=== PATIENT | female | born 1940 | race Caucasian/White ===

== ENCOUNTER 2024-02-13 01:44 | Observation (INO) | payer OTHER, SELFPAY ==
[2024-02-12 19:30] VITALS: BP 127/73
[2024-02-12 19:48] LABS: % Basophils 0.3 % (0-2); % Eosinophils 0.6 % (0-6); % Immature Granulocytes 0.3 % (0-0.5); % Lymphocytes 16.3 % (20.5-51.1); % Monocytes 7.9 % (1.7-9.3); % Neutrophils 74.6 % (42.2-75.2); Absolute Eosinophils 0.1 10^3/uL (0-0.7); Absolute Lymphocytes 1.6 10^3/uL (1.2-3.4); Absolute Monocytes 0.8 10^3/uL (0.1-0.6); Absolute Neutrophils 7.1 10^3/uL (1.4-6.5); Hematocrit 37.6 % (37.0-47.0); Hemoglobin 13.2 g/dL (12.0-16.0); Mean Corp Hgb Conc. 35.1 g/dL (33.0-37.0); Mean Corpuscular Hgb 31.2 pg (27.0-31.0); Mean Corpuscular Volume 88.9 fL (81.0-99.0); Mean Platelet Volume 9.2 fL (7.4-10.4); Nucleated Red Blood Cells % 0 %; Platelet Count 265 10^3/uL (130-400); Red Blood Cell Count 4.23 10^6/uL (4.20-5.40); Red Cell Dist. Width 12.3 % (11.5-14.5); White Blood Cell Count 9.5 10^3/uL (4.8-10.8)
[2024-02-12] MEDS: ZOFRAN ODT (ORALLY DISINTEGRATING) 4 MG PO (20:10)
[2024-02-12 20:13] LABS: ALT (SGPT) 17 U/L (0-35); AST (SGOT) 26 U/L (14-36); Albumin 4.3 g/dl (3.5-5.0); Alkaline Phosphatase 85 U/L (38-126); Blood Urea Nitrogen 12 mg/dl (7-17); Calcium 9.3 mg/dl (8.4-10.2); Carbon Dioxide 23 mmol/L (22-30); Chloride 101 mmol/L (98-107); Glucose 124 mg/dl (70-99); Lipase 36 U/L (23-300); Potassium 4.1 mmol/L (3.5-5.1); Sodium 133 mmol/L (135-145); Total Bilirubin 1.1 mg/dl (0.2-1.3); Total Protein 7.2 g/dl (6.3-8.2); eGFR > 60.00
[2024-02-12 21:29] VITALS: BP 126/76
[2024-02-12 21:30] VITALS: BMI 26.8
[2024-02-12 22:00] VITALS: BP 143/75
[2024-02-12] MEDS: ZOFRAN 4 MG IV (22:18)
[2024-02-12] MEDS: NSS 1000 IV (22:18)
[2024-02-12] MEDS: MORPHINE SULFATE 4 MG IV (22:19)
--- NOTE | 2024-02-12 23:07 | ED.GENMED ---
History of Present Illness
General
Chief Complaint: Abdominal Pain
Source: patient and family
Time Seen by Provider: 02/12/24 22:06
History of Present Illness
History of Present Illness:
83-year-old female with past medical history of hypertension and previous stomach ulcer presenting to the emergency department for evaluation of generalized upper abdominal pain, nausea, vomiting and diarrhea since February 07. Symptoms have been waxing
and waning in nature, currently the worst it has been, constant, nonradiating and unrelieved with an gvxa-fxf-cmuuwca antiacid and some Gatorade. Patient went to urgent care today with family and was recommended to come to the ER for further
evaluation. No fevers, chills, rigors, chest pain, shortness of breath, back or flank pain or any other concerns. States this feels different than any previous GI related illness. Notes a history of previous appendectomy but no other abdominal
surgeries. Social history and family history noncontributory
Past History
Past History
ED Past Medical History: HTN and Other (Intermittent vertigo, peptic ulcer disease)
ED Past Surgical History: Appendectomy
Social History
Tobacco: Non-smoker
Alcohol: None
Drug: None
Personal: Single
Living: alone
Employment: Other
Family History
Family History: Other
Review of Systems
Review of Systems
All Other Systems: ROS reviewed and negative except as documented in HPI and ROS
Phy Exam
Physical Exam
Physical Exam:
GENERAL: Alert , appears in considerable pain, curled up in a ball and holding abdomen, tearful
EYE: clear conjunctiva b/l
HEAD: NCAT
ENT: o/p clr, mmm.
CARDIAC: Regular rate and rhythm .
LUNGS: Clear breath sounds bilaterally, no acute respiratory distress, no wheezes/rales/rhonchi
ABDOMEN: Soft, without focal tenderness, no r/g, no cvat, negative Lentz sign. Patient stating pain does not seem to be worsened or aggravated by palpation
NEUROLOGICAL: Alert and oriented
SKIN: Warm and dry, skin intact.
MUSCULOSKELETAL: No edema, well perfused.
PSYCH: Normal and appropriate interaction.
Scores
Heart Failure Risk
Heart Failure Risk Score: Not Applicable
Heart Score for Chest Pain Patients
STEMI patient?: Not applicable
Withdrawal Assessment of Alcohol
Withdrawal Assessment Completed?: Not applicable
Course
Orders/Labs/Results
Orders:
Orders
02/12/24 19:40
Complete Blood Count/With Diff Urgent
Comprehensive Metabolic Panel Urgent
Lipase Urgent
02/12/24 20:09
Ondansetron Orally Disint [Zofran Odt (Orally Disintegrating)] 4 mg .ROUTE .STK-MED ONE
Ondansetron Orally Disint [Zofran Odt (Orally Disintegrating)] 4 mg PO NOW STA
02/12/24 22:14
Morphine Sulfate 4 mg .ROUTE .STK-MED ONE
Ondansetron Injectable [Zofran] 4 mg .ROUTE .STK-MED ONE
02/12/24 22:15
0.9% Sodium Chloride 1000 ml [Nss] 1,000 ml IV BOLUS
Morphine Sulfate 4 mg IV NOW STA
Ondansetron Injectable [Zofran] 4 mg IV NOW STA
02/12/24 22:16
US Abdomen Complete/Upper Urgent
Comment:
Reason For Exam: upper abd pain, nausea/vomiting
02/12/24 23:31
CT Abd/pelvis W Iv Cont Urgent
Comment:
Reason For Exam: upper abd pain, vomiting
02/13/24 01:04
Prochlorperazine [Compazine] 10 mg IV NOW STA
Abnormal Lab Results
02/12/24
19:40
MCH 31.2 H pg
(27.0-31.0)
Absolute Neuts (auto) 7.1 H 10^3/uL
(1.4-6.5)
Absolute Monos (auto) 0.8 H 10^3/uL
(0.1-0.6)
Lymphocytes % 16.3 L %
(20.5-51.1)
Sodium 133 L mmol/L
(135-145)
Glucose 124 H mg/dl
(70-99)
02/12/24 19:40
02/12/24 19:40
Vital Signs
Initial and Last Documented VS:
Initial Vital Signs
Temp Pulse Resp BP Pulse Ox
98 F 84 18 127/73 96
02/12/24 19:30 02/12/24 19:30 02/12/24 19:30 02/12/24 19:30 02/12/24 19:30
Last Documented Vital Signs
Temp Pulse Resp BP Pulse Ox
98 F 84 18 137/76 94
02/12/24 19:30 02/12/24 19:30 02/12/24 19:30 02/13/24 00:26 02/13/24 00:30
MDM/Problems Addressed
Differential Diagnosis Includes:
GERD, gastritis, peptic ulcer disease, pancreatitis, cholecystitis/cholelithiasis
MDM/Problems Addressed:
83-year-old female presenting to the emergency department for evaluation of upper abdominal pain, nausea/vomiting and diarrhea over the last 4 days. Today pain seem to be worse. Patient noting pain is exclusively within the upper abdomen. Exam
does not reveal any significant areas of tenderness/pain on palpation. Patient does appear quite uncomfortable and in considerable pain. 4 mg of morphine and Zofran ordered. Labs were initiated in triage and there is no leukocytosis and chemistry
is otherwise unremarkable. Ultrasound of the abdomen ordered to evaluate. Considering CT if ultrasound is unremarkable. Disposition pending
*Radiology
Radiology exam reviewed: radiology read reviewed
*Pulse Oximetry
Patient hypoxic: no
*Critical Care Note
Total Time (30-74mins, 75-104mins- exclusive of procedures): Not Applicable
Data Reviewed
Review of Other/Old Records Reveals: Labs and Records
Source: patient and family
Patient Management
Discussion with other providers: Hospitalist
Escalation/DeEscalation of care consider admission/obs:
Patient noted initial improvement of symptoms with medication however on second reevaluation symptoms started to return. Compazine ordered. 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
recommended. Given her continued pain and symptoms a CT scan was ordered. This showed mural thickening of the gastric antrum and distal gastric body likely representing gastritis. Given patient's history of peptic ulcer disease I do also have
concern for this. Incidental findings of liver lesions noted, patient has a 1 cm calcified splenic artery aneurysm and lumbar compression fractures that family and patient were already aware of. Given her continued symptoms combined with age and
inability to tolerate p.o. decision was ultimately made to admit for continued symptomatic treatment. Patient in agreement with this plan. Hospitalist accepts for continued evaluation and treatment.
ED Attending Note
-
Portions of this chart may have been created with voice recognition software.� Occasional wrong word or��sound alike� substitutions may have occurred due to the inherent limitations of voice recognition software.
Discharge Plan
Departure
Patient Disposition: Admit
Date of Disposition: 02/13/24
Time of Disposition: 01:06
Presentation/result/management discussed w/ accepting MD/DO: Hospitalist
Discharge Problem:
Abdominal pain, Nausea and vomiting
Prescriptions:
No Action
meclizine 25 MG tablet
25 mg PO Q8HPRN PRN (Reason: nausea or vertigo) Qty: 12 0RF
fluticasone propionate 1 SPRAY spray,suspension
1 spray intranasal DAILY Qty: 1 0RF
Rx Instructions:
One spray in each nostril every day
hydrocodone-acetaminophen 1 TABLET tablet
1 - 2 tab PO Q4HPRN PRN (Reason: pain) Qty: 12 0RF
omeprazole 40 mg capsule,delayed release(DR/EC)
40 mg PO DAILY Qty: 14 0RF
oxycodone 5 mg tablet
5 mg PO Q8H PRN (Reason: Pain) Qty: 14 0RF
lidocaine [Lidoderm] 5 % adhesive patch,medicated
1 patch topical DAILY Qty: 30 0RF
Referrals:
Rodriguez Armenta MD [Family Provider] -
Interventions
Interventions:
*Risk Screen - Suicide Last Done: 02/12/24 19:30
*General Assessment Last Done: 02/12/24 19:30
*Neglect/Abuse Screening Last Done: 02/12/24 19:30
ED- Fall Risk Assessment Last Done: 02/12/24 21:30
*ED COVID-19 Vaccine History Last Done: 02/12/24 21:30
TB-Sxcqbj-Nhresjaqzt Assessment Last Done: 02/12/24 21:30
Discharge Date and Time
Print Language: LIBERIAN
[2024-02-13] VITALS (7 sets, daily range): BP systolic 103–137; BP diastolic 57–97; BMI 25.3
[2024-02-13] MEDS: COMPAZINE 10 MG IV (01:13)
--- NOTE | 2024-02-13 02:23 | HPS.HSE ---
Family Physician
-
[facility]
Chief Complaint
-
abdominal pain
History of Present Illness
HPI
83F HX HTN, PUDz, seen at ER for evaluation of abdominal pain:
- waxing and waning upper abdominal pain
- POS nausea, vomiting and diarrhea since February 07.
- currently become constant and nonradiating
- not relief by OTC antacid and some Gatorade.
- Denied HX ETOH use
- Eval at [facility] [place] and suggest ER for further evaluation.
ROS:
No fevers, chills, rigors or flank pain
Medical History
Past Medical History
Past Medical History: Reports HTN and Hypercholesterolemia
Past Surgical History: Reports Appendectomy
Social History
Tobacco: Non-smoker
Alcohol: None
Personal: Single
Family History
Family History: Not pertinent
Allergies / Home Medications
Allergies reflects when Allergies were last updated in [employer].
Home Medications with original date entered in [employer]
Allergy/Medication List:
Allergies
Allergy/AdvReac Type Severity Reaction Status Date / Time
latex Allergy Rash Verified 02/13/24 01:41
Home Medications
meclizine 25 mg tablet 25 mg PO Q8HPRN PRN nausea or vertigo #12 tabs 09/29/20
omeprazole 40 mg capsule,delayed release 40 mg PO DAILY #14 caps 11/28/22
rosuvastatin 5 mg tablet 5 mg PO DAILY 02/13/24
Review of Systems
-
Constitutional: Reports No Symptoms
EENT: Reports No Symptoms
Respiratory: Reports No Symptoms
Cardiac: Reports No Symptoms
Abdomen/GI: Reports Abdominal Pain
: Reports No Symptoms
Musculoskeletal: Reports No Symptoms
Skin: Reports No Symptoms
Neurological: Reports No Symptoms
Endocrine: Reports No Symptoms
Hematologic/Lymphatic: Reports No Symptoms
Psych: Reports No Symptoms
Physical Exam
Vital Signs
Vital Signs
Temp Pulse Resp BP Pulse Ox
98 F 84 18 123/72 94
02/12/24 19:30 02/12/24 19:30 02/12/24 19:30 02/13/24 02:00 02/13/24 02:00
Physical Exam
General: Well Developed, Well Nourished and No Apparent Distress
HEENT: NormoCephalic, Moist mucous membranes and Atraumatic
Respiratory: Clear
Cardiac: S1/S2 and Regular Rhythm; No Murmur or Rub
GI: Soft, Non Tender, Non Distended and Normal Bowel Sounds
Rectal: Deferred by Provider
Musculoskeletal: No Clubbing, No Cyanosis and No Edema
Skin: No Rash
Neuro: Nonfocal/grossly intact
Laboratory Results
-
02/12/24 19:40
02/12/24 19:40
Laboratory Results
Total Bilirubin 1.1 mg/dl (0.2-1.3) 02/12/24 19:40
AST 26 U/L (14-36) 02/12/24 19:40
ALT 17 U/L (0-35) 02/12/24 19:40
Alkaline Phosphatase 85 U/L (38-126) 02/12/24 19:40
Lipase 36 U/L (23-300) 02/12/24 19:40
Data Reviewed
-
CT Scan: Report Reviewed by me
Lab Data: Labs Reviewed by me
Impression/Plan
-
Reviewed VS: unremarkable
Data
nl WCC
Na 133
unremarkable CMP
US Abdomen
Hepatic fatty infiltration.
Hepatic cyst
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 Nonurgent MRI examination recommended when the patient is able
Poor visualization of the proximal IVC and abdominal aorta.
CT AP
suggestive of gastritis; consider gastritis consider EGD
scattered indeterminant hypodense lesions through out liver ; recommended MRI
mild b/l HN
Age unknown L4 compression Fx , ch L2 compression Fx
No prior hospitalist admission:
ASSESSMENT & PLAN
Generalized waxing and waning upper abdominal pain
CT AP suggestive of gastritis; consider gastritis consider EGD
Scattered indeterminant hypodense lesions throu out liver ; rdcommended MRI
- unremarkable labs
- NPO and IVF
- Narcotic analgesia PRN
- GI consult
HLD on Rosuvastatin
DVT Px: SCD
Code: Full
Obs MS
[2024-02-13] MEDS: NSS 1000 IV ×2 (03:16→20:06)
[2024-02-13] MEDS: PROTONIX IV 40 MG IV ×2 (08:00→20:06)
[2024-02-13] MEDS: NSS (PRESERVATIVE FREE) 10 ML IV ×2 (08:01→20:07)
--- NOTE | 2024-02-13 09:49 | CON.GI ---
Addendum entered and electronically signed by Angela Zhao DO 02/13/24 14:23:
Patient seen examined independently of [facility]. I agree with her note with additions below
Mckenzie is an 83-year-old female with no significant GI history who comes in with acute onset nausea vomiting diarrhea which has since improved she now has been at least 12 hours with no symptoms.
-- Start for liquid diet
-- I did review her CT scan as well as prior EGD in 2018 where she had biopsies showing low-grade dysplasia. Her CT scan also shows antral thickening and she has multiple lesions throughout the liver which could be concerning
-- Will plan for endoscopy tomorrow with biopsies and mapping depending on what we see
Patient denies any weight loss anorexia. No chronic GI symptoms, her labs are unrevealing. Normal alkaline phosphatase and total bilirubin. Normal LFT pattern. Lipase 36
Original Note:
Consultation
-
Date/Time Consultation Requested: 02/13/2024 at 0249
Date/Time Consultation Performed: 02/13/2024 at 0930
Requesting Provider: [facility] Deutsch
Performing Provider: Thania Ramirez ([employer] Student)/ [facility] Evans/ Dr. Zhao
Reason for Consultation: Abdominal Pain/ Gastritis on EGD 2018
Medical History
Chief Complaint / HPI
Chief Complaint: Abdominal Pain, Nausea, Vomiting, Diarrhea
History of Present Illness:
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
after presenting to urgent care on 02/12/2024 for abdominal pain, nausea, vomiting and diarrhea. She notes onset of symptoms on 02/08/2024 as previously mentioned. Patient reported diffuse abdominal pain that was intermittent. Denied radiation of pain.
She also reported vomiting 2x per day with brown emesis. Denies hematemesis. Patient reported diarrhea approximately once a day which was black, but does admit to using Pepto Bismol two days prior to presentation. Denied maurilio blood in stool.
Patient reported taking Imodium with minimal relief of symptoms. Patient denies any chronic diarrhea and usually has regular, formed BM at baseline. Patient denied urinary symptoms, chest pain, shortness of breath, fever, chills, unintentional
weight loss, dysphagia or odynophagia. She denied sick contacts, recent travel, or recent antibiotics. Denies eating any foods out of her norm, or eating out as a restaurant. Denied use of NSAIDs, Aspirin, Anticoagulants. Denied use of alcohol,
drugs or tobacco. Patient reported that she has had an endoscopy and colonoscopy in the past but was unsure of exact timing. She stated that she has acid reflux and had colon polyps previously, however, we do not have that report on file. EGD in
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 Follow up of these findings is unclear. Patient reported that she does not regularly see GI and we have no records on system of
outpatient visits to GI. She takes Omeprazole chronically for GERD. Currently, she reports resolution of symptoms, however she has not had anything to eat during her hospitalization. Reports family history of colon cancer, but unclear whether it was
her sister or nephew. Patient is a poor historian, therefore, full history is limited. Patient underwent CT imaging of abdomen/pelvis showing moderate to severe concentric thickening of the wall of the body and antrum of the stomach. There are
several low-density hepatic lesions measuring up to 23 mm. Follow up MRI imaging was recommended to evaluate the liver further. Routine labs on admission unrevealing. Abdominal ultrasound was done and showed fatty liver and probable pancreatic head
cyst. Nonurgent MRI examination recommended. Made NPO. Started on IV PPI and admitted for further evaluation by GI.
Past Medical History
Past Medical History: GERD, HTN and Hypercholesterolemia
Past Surgical History: Appendectomy and Other (Septoplasty )
Social History
Tobacco: Non-Smoker
Alcohol: None
Drug: None
Living: With Family
Family History
Family History: Cancer (unsure of which family member- patient reported either her sister or nephew)
Allergies / Home Medications
Allergy/AdvReac Type Severity Reaction Status Date / Time
latex Allergy Rash Verified 02/13/24 01:41
�Medication �Instructions �Recorded
meclizine 25 mg tablet 25 mg PO Q8HPRN PRN nausea or 09/29/20
vertigo #12 tabs
omeprazole 40 mg capsule,delayed 40 mg PO DAILY #14 caps 11/28/22
release
rosuvastatin 5 mg tablet 5 mg PO DAILY High Cholesterol 02/13/24
Review of Systems
-
History Source: Patient
Constitutional: Reports No Symptoms
EENT: Reports No Symptoms
Respiratory: Reports No Symptoms
Cardiac: Reports No Symptoms
Abdomen/GI: Reports Abdominal Pain, Nausea, Vomiting and Diarrhea
: Reports No Symptoms
Musculoskeletal: Reports No Symptoms
Skin: Reports No Symptoms
Neurological: Reports No Symptoms
Endocrine: Reports No Symptoms
Hematologic/Lymphatic: Reports No Symptoms
Vital Signs
Temp Pulse Resp BP Pulse Ox
97.7 F 63 18 103/57 97
02/13/24 07:00 02/13/24 07:00 02/13/24 07:00 02/13/24 07:00 02/13/24 07:00
Physical Exam
Exam
General: Well Developed, Well Nourished and No Apparent Distress
HEENT: Normocephalic
Respiratory: Clear
Cardiac: S1/S2 and Regular Rhythm
Breast: Deferred by me
GI: Soft, Non Tender, Non Distended and Normal Bowel Sounds
Rectal: Deferred by Provider
Genito-urinary: No Costovertebral Tender
Musculoskeletal: No Clubbing, No Cyanosis and No Edema
Skin: Warm and Dry
Neuro: Awake, Alert, Oriented and AO x 3
Hematologic/Lymphatic: No Lymphadenopathy
Psych: Calm
Results
WBC 9.5 10^3/uL (4.8-10.8) 02/12/24 19:40
Hgb 13.2 g/dL (12.0-16.0) 02/12/24 19:40
Hct 37.6 % (37.0-47.0) 02/12/24 19:40
MCV 88.9 fL (81.0-99.0) 02/12/24 19:40
Plt Count 265 10^3/uL (130-400) 02/12/24 19:40
Absolute Neuts (auto) 7.1 10^3/uL (1.4-6.5) H 02/12/24 19:40
Sodium 133 mmol/L (135-145) L 02/12/24:40
Potassium 4.1 mmol/L (3.5-5.1) 02/12/24 19:40
Chloride 101 mmol/L (98-107) 02/12/24 19:40
Carbon Dioxide 23 mmol/L (22-30) 02/12/24:40
BUN 12 mg/dl (7-17) 02/12/24 19:40
Creatinine 0.6 mg/dL (0.6-1.0) 02/12/24 19:40
Calcium 9.3 mg/dl (8.4-10.2) 02/12/24 19:40
Total Bilirubin 1.1 mg/dl (0.2-1.3) 02/12/24 19:40
AST 26 U/L (14-36) 02/12/24 19:40
ALT 17 U/L (0-35) 02/12/24 19:40
Alkaline Phosphatase 85 U/L (38-126) 02/12/24 19:40
Lipase 36 U/L (23-300) 02/12/24 19:40
Diagnostic Image Results:
Ultrasound Abdomen Complete:
IMPRESSION: Hepatic fatty infiltration. Hepatic cyst. 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 Nonurgent MRI examination recommended when the patient is able. Poor visualization of the proximal IVC and abdominal aorta.
CT abdomen/pelvis:
IMPRESSION:
1). There is moderate to-severe concentric thickening of the wall of the body and antrum of the stomach. This most likely is inflammatory/gastritis, however, malignancy is not excluded and endoscopy may be useful for further evaluation.
2). There are several low-density hepatic lesions measuring up to 23 mm. These lesions may be benign or malignant/metastatic and follow-up imaging with MRI is recommended for further evaluation.
Seen in ED 11/2022 for cardiac evaluation:
Presented with 2 months of chest discomfort with temporary relief from Tums. Cardiac workup negative- troponin negative. Chest x-ray clear. No signs of PE or dissection. Recommended OTC Prilosec and follow up with PCP.
Last EGD 2017 and showed:
The examined duodenum was normal.
Localized moderate inflammation characterized by congestion (edema), erosions, erythema, friability and granularity was found in the gastric antrum. Biopsies were taken with a cold forceps for histology. The gastric body was normal. Biopsies were
taken with a cold forceps for histology. A small hiatal hernia was present. The esophagus was normal. No sign of large gastric ulcer.
Impression: - Normal examined duodenum.
- Gastritis. Biopsied.
- Normal gastric body. Biopsied. Low grade dysplasia/IM on bx
- Small hiatal hernia.
- Normal esophagus.
Assessment / Plan
-
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
after presenting to urgent care on 02/12/2024 for abdominal pain, nausea, vomiting and diarrhea. We are being asked to evaluate for the presenting symptoms. She notes acute onset of the presenting symptoms on unclear cause. She notes history of
gastritis and takes chronic PPI. She has no diarrhea at baseline. Her symptoms have since resolved upon admission. CT and US imaging reviewed as above, showing gastric wall thickening and some indeterminate hepatic lesions. Labs essentially are
unrevealing. She has no complaints at this time.
Plan:
-abdominal pain
-nausea,vomiting, diarrhea
-hx Gastritis on chronic PPI
-EGD 2018 showing low grade dysplasia of antral bx
-CT showing indeterminate, low density hepatic lesions
-fatty liver on US
-mild hyponatremia
-HTN
-HLD
-intermittent vertigo
Recommendations:
-Etiology of presenting symptoms possibly secondary to gastroenteritis given acute onset versus other. CT findings likely are coincidental, but concerning given her history of gastric biopsies previously in 2018 showing low-grade dysplasia and
intestinal metaplasia. It is unclear as to the follow-up regarding this as we do not have records.
-At this time would trial her on a liquid diet and advance as tolerated
-Will continue on twice daily PPI IV for now
-Consider EGD if she is not improving, inpatient versus outpatient pending clinical course
-PRN antiemetics
-She will need a nonemergent MRI outpatient to evaluate for possible pancreatic head cyst and several low-density hepatic lesions
-If she has recurrent diarrhea, would send stool studies to rule out infection
-Further plan pending above
Data Reviewed
-
CT Scan: Report Reviewed by me and Discussed with Physician
Old Records: Reviewed
-
-
Thank you for consultation and allowing me to participate in the patient's care. Please call the composition roll maker and cutter GI physician during the after hours with any questions or concerns.
--- NOTE | 2024-02-13 09:59 | W.PN.HOSP.TC ---
Addendum entered and electronically signed by Domenico France MD 02/13/24 15:21:
I saw and evaluated the patient. I reviewed the resident�s note and agree with findings and plan as documented in the resident�s note.
Await GI input for stomach wall thickening. Patient has a prior history of peptic ulcer disease.
Increase the dose of PPI to twice a day in meantime. Resolved nausea vomiting and diarrhea.
Original Note:
Today's Communication/Plan
-
GI consult--continue IV PPI and morphine as needed
Assessment / Plan
Assessment / Plan
Patient is a 83-year-old female with past medical history of hypertension, PUD (takes omeprazole and meclizine at home) and PSH of appendectomy. Came to the ER with waxing and waning upper abdominal pain which became more constant over time & did
not respond to antiacid and Gatorade. Also was experiencing nausea vomiting and diarrhea since February 07. No history of alcohol use disorder--no guarding or tenderness--CBC LFTs normal-- started IV PPI and morphine PRN, NPO, IVF--abdominal pain
resolved--GI consult ordered--consider EGD
Nausea/vomiting--resolved--Zofran as needed
Diarrhea--resolved--bisacodyl if needed
Anticipated Discharge: 24 - 48 hours
Subjective/Interval History
-
Date of Service: February 13, 2024
Patient is feeling good in general. abdominal pain has improved. Does not feel nauseous. No vomiting or diarrhea.
Objective Data
-
Vital Signs:
Vital Signs
Temp Pulse Resp BP Pulse Ox
97.7 F 63 18 103/57 97
02/13/24 07:00 02/13/24 07:00 02/13/24 07:00 02/13/24 07:00 02/13/24 07:00
I&O
07/08/24 07/09/24 07/10/24
06:59 06:59 06:59
Intake Total 0 / 0
Balance 0 / 0
Review of Systems
-
History Source: Patient
All other systems: Reviewed and negative
Physical Exam
-
General: Well Developed, Well Nourished and No Apparent Distress
HEENT: Normocephalic and Atraumatic
Respiratory: Clear to Auscultation and Non Labored Respirations
Cardiac: Regular Rhythm and S1/S2
GI: Soft, Nontender, Nondistended and Normal Bowel Sounds
Musculoskeletal: No Clubbing, No Cyanosis and No Edema
Skin: Warm
Neuro: Awake, Alert, Oriented and AO x 3
Hematologic / Lymphatic: No Lymphadenopathy
Psych: Calm
Data Reviewed
-
Total Time Spent with Patient (in minutes): 30
--- NOTE | 2024-02-13 13:57 | W.PN.HOSP.TC ---
Addendum entered and electronically signed by Tracy Bishop MD, Resident 02/14/24 18:03:
This this note is for date of service 02/14/24.
Addendum entered and electronically signed by Domenico France MD 02/14/24 17:08:
I saw and evaluated the patient. I reviewed the resident�s note and agree with findings and plan as documented in the resident�s note.
Patient back from the EGD. Denies abdominal pain, nausea vomiting.
Abdomen soft.
Start on oral diet and start DC planning
Discussed with GI about abnormal endoscopic findings in the stomach. Concerning for malignancy. GI had aborted with son and I also spoke with the son regarding concerning gastric ulcer. Need to follow biopsy report and depending would need an
oncology evaluation as OP.
Medically stable for discharge home and follow-up as outpatient.
Total time of discharge 32 minutes.
Original Note:
Documented by User: Tracy Bishop MD, Resident 02/14/24 16:50
Today's Communication/Plan
-
Discharge after regular diet is tolerated
Assessment / Plan
Assessment / Plan
Patient is a 83-year-old female with past medical history of hypertension, PUD (takes omeprazole and meclizine at home) and PSH of appendectomy. Came to the ER with waxing and waning upper abdominal pain which became more constant over time & did
not respond to antiacid and Gatorade. Also was experiencing nausea vomiting and diarrhea since February 07. No history of alcohol use disorder--no guarding or tenderness--CBC LFTs normal-- started IV PPI and morphine PRN, NPO, IVF--abdominal pain
resolved--apprec GI consult --EGD shows- Normal esophagus. Non-obstructing non-bleeding gastric ulcer with pigmented material. There is no evidence of perforation-- Concerning for malignancy--Atrophic and texture changed mucosa in the stomach.
Normal examined duodenum--pathology pending
Placed patient on regular diet--PPI twice daily--consider outpatient abd/pelvis CT scan for evaluation of liver lesions
Nausea/vomiting--resolved--Zofran as needed
Diarrhea--resolved--bisacodyl if needed
Anticipated Discharge: Today
Subjective/Interval History
-
Date of Service: February 13, 2024
Patient is feeling good--no longer has abdominal pain--does not report any nausea, vomiting,diarrhea
Objective Data
-
Vital Signs:
Vital Signs
Temp Pulse Resp BP Pulse Ox
97.7 F 63 18 103/57 97
02/13/24 07:00 02/13/24 07:00 02/13/24 07:00 02/13/24 07:00 02/13/24 07:00
I&O
02/12/24 02/13/24 02/14/24
06:59 06:59 06:59
Intake Total 0 / 0
Balance 0 / 0
Review of Systems
-
History Source: Patient
All other systems: Reviewed and negative
Physical Exam
-
General: Well Developed, Well Nourished and No Apparent Distress
HEENT: Normocephalic and Atraumatic
Respiratory: Clear to Auscultation
Cardiac: Regular Rhythm and S1/S2
GI: Soft, Nontender and Nondistended
Genito-urinary: No Costovertebral Tender
Musculoskeletal: No Clubbing, No Cyanosis and No Edema
Skin: Warm
Neuro: Awake, Alert, Oriented and AO x 3
Hematologic / Lymphatic: No Lymphadenopathy
Psych: Calm
Data Reviewed
-
Total Time Spent with Patient (in minutes): 30

Documented by User: Domenico France MD 02/14/24 17:07
Assessment / Plan
Assessment / Plan
Patient is a 83-year-old female with past medical history of hypertension, PUD (takes omeprazole and meclizine at home) and PSH of appendectomy. Came to the ER with waxing and waning upper abdominal pain which became more constant over time & did
not respond to antiacid and Gatorade. Also was experiencing nausea vomiting and diarrhea since February 07. No history of alcohol use disorder--no guarding or tenderness--CBC LFTs normal-- started IV PPI and morphine PRN, NPO, IVF--abdominal pain
resolved--apprec GI consult --EGD shows- Normal esophagus. Non-obstructing non-bleeding gastric ulcer with pigmented material. There is no evidence of perforation-- Concerning for malignancy--Atrophic and texture changed mucosa in the stomach.
Normal examined duodenum--pathology pending
Placed patient on regular diet--PPI twice daily--consider outpatient abd/pelvis MRI scan for evaluation of liver lesions
Nausea/vomiting--resolved--Zofran as needed
Diarrhea--resolved--bisacodyl if needed
[2024-02-14 06:34] LABS: Hematocrit 32.1 % (37.0-47.0); Hemoglobin 10.8 g/dL (12.0-16.0); Mean Corp Hgb Conc. 33.6 g/dL (33.0-37.0); Mean Corpuscular Hgb 31.7 pg (27.0-31.0); Mean Corpuscular Volume 94.1 fL (81.0-99.0); Mean Platelet Volume 9.4 fL (7.4-10.4); Platelet Count 202 10^3/uL (130-400); Red Blood Cell Count 3.41 10^6/uL (4.20-5.40); Red Cell Dist. Width 12.5 % (11.5-14.5); White Blood Cell Count 6.1 10^3/uL (4.8-10.8)
[2024-02-14 07:00] VITALS: BP 148/73
[2024-02-14] MEDS: NSS (PRESERVATIVE FREE) 10 ML IV (07:49)
[2024-02-14] MEDS: PROTONIX IV 40 MG IV (07:50)
[2024-02-14 08:06] LABS: ALT (SGPT) 12 U/L (0-35); AST (SGOT) 22 U/L (14-36); Albumin 3.1 g/dl (3.5-5.0); Alkaline Phosphatase 61 U/L (38-126); Blood Urea Nitrogen 8 mg/dl (7-17); Calcium 8.3 mg/dl (8.4-10.2); Carbon Dioxide 27 mmol/L (22-30); Chloride 111 mmol/L (98-107); Estimated Creatinine Clearance 46 ml/min; Glucose 93 mg/dl (70-99); Potassium 4.7 mmol/L (3.5-5.1); Sodium 140 mmol/L (135-145); Total Bilirubin 0.9 mg/dl (0.2-1.3); Total Protein 5.6 g/dl (6.3-8.2); eGFR > 60.00
[2024-02-14 12:20] VITALS: BP 104/66; BP_SYST 158
[2024-02-14 12:21] VITALS: BP 104/66
[2024-02-14 12:30] VITALS: BP 129/67
[2024-02-14 12:39] VITALS: BP 104/66; BP_SYST 158
--- NOTE | 2024-02-14 13:02 | CM ---
Reviewed chart, met with patient to obtain information for assessment. Patient stated that she lives with her son in a two story single home with 2 steps to enter.
Patient described herself as independent with all ADLs, personal care, dressing and bathing. 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 She drives and can get to all of her appointments and do all of her own shopping.
She denies any DME in her home.
She has never had VN services.
She has not been to a SNF in the past.
She has a prescription plan and uses, [facility] in [place] for all of her medications.
Her PCP is, Rodriguez Rose.
Patient stated that she would like to return home when medically cleared for discharge.
YANEZ letter reviewed, signed and is on chart.
Plan: Case management will continue to follow and assist with discharge planning. Patient would like to return home with her son when stable.
[2024-02-14 15:00] VITALS: BP 119/60
--- NOTE | 2024-02-14 17:56 | W.DS.TRANS ---
DC Summary - [facility]
-
Discharge Instructions:
Discharge Diagnosis/Procedures Abdo pain secondary to gastric ulcer
Diet Regular
Activity As tolerated
Driving Restrictions As prior to admission
Bathing Restrictions None
Instructions:
Stand-Alone Forms:
Changes to Home Medications: Yes
Discharge Medications:
DC Medications w/original date entered in [employer]
meclizine 25 mg tablet 25 mg PO Q8HPRN PRN nausea or vertigo #12 tabs 09/29/20
rosuvastatin 5 mg tablet 5 mg PO DAILY High Cholesterol 02/13/24
pantoprazole 40 mg tablet,delayed release (Protonix) 40 mg PO BID #60 tabs 02/14/24
Home Medication Changes
New medications: pantoprazole 40 BID
Pending Results: Yes
Total time spent discharging patient (in min): 30
--- NOTE | 2024-02-14 17:56 | W.DCSUMMARY ---
Addendum entered and electronically signed by Domenico France MD 02/14/24 18:18:
Read, reviewed, and agree. See same day progress note for additional details. Time spent coordinating care, DC planning, review of DC plan of care with resident, transition of care, review of records in EMR, med rec, consults, notes, d/w
consultants, nursing, family, and CM 35 mins
Original Note:
Documented by User: Tracy Bishop MD, Resident 02/14/24 18:10
Discharge Summary
Discharge Data
Date of Admission: 02/13/24
Date of Discharge: 02/14/24
-
Pending Results: Yes
Additional Pending Results:
Pathology from gastric biopsy
Hospital Course
Patient is a 83-year-old female with past medical history of hypertension, PUD (takes omeprazole and meclizine at home) and PSH of appendectomy. Came to the ER with waxing and waning upper abdominal pain which became more constant over time & did
not respond to antiacid and Gatorade. Also was experiencing nausea vomiting and diarrhea since February 07. No history of alcohol use disorder--no guarding or tenderness--patient was admitted
Problem #1: Abdominal pain: CBC LFTs normal-- started IV PPI and morphine PRN, NPO, IV fluids. Abdominal pain was resolved--GI consult recommended EGD. EGD showed normal esophagus. Non-obstructing non-bleeding gastric ulcer with pigmented material.
There was no evidence of perforation, ulcer was concerning for malignancy.Atrophic and texture change was noted in mucosa of the stomach. Normal examined duodenum--pathology is pending. Also given abnormal CT findings showing low-density hepatic
lesions and thickening of the gastric body and antrum, hematology consult might be needed in the future based on biopsy results. Increased PPI dose to 40mg twice daily.
Problem #2: nausea/vomiting--resolved after received Zofran as needed.
Problem #3: diarrhea--patient did not experience any episode of diarrhea during hospitalization.
Patient is stable for discharge. Instructions have been given regarding change of dose of PPI. GI office to call in 1 to 2 weeks to update patient on pathology result.
Discharge Plan
-
Patient Disposition: Home (Routine Discharge)
Discharge Diagnosis/Procedures: Abdo pain secondary to gastric ulcer
Condition: Good
Diet: Regular
Activity: As tolerated
Driving Restrictions: As prior to admission
Bathing Restrictions: None
Referrals:
Rodriguez Armenta MD [Family Provider] - in less than 1 week
Angela Zhao DO [Active] - (office will call patient in 1-2 weeks with the biopsy results.)
Prescriptions:
New
pantoprazole [Protonix] 40 mg tablet,delayed release (DR/EC)
40 mg PO BID Qty: 60 0RF
Rx Instructions:
new medication instead of omeprozole
Continued
meclizine 25 MG tablet
25 mg PO Q8HPRN PRN (Reason: nausea or vertigo) Qty: 12 0RF
rosuvastatin 5 mg Tablet
5 mg PO DAILY
Discontinued
omeprazole 40 mg capsule,delayed release(DR/EC)
40 mg PO DAILY Qty: 14 0RF
Discharge Orders:
Discharge Patient (As Directed); Ordered 02/14/24
Ordered By: Tracy Bishop
Discharge Date and Time
Print Language: [place]ICAN CITIZEN

Documented by User: Domenico France MD 02/14/24 18:17
Discharge Summary
Discharge Data
Date of Admission: 02/13/24
Date of Discharge: 02/14/24
Discharge Plan
-
Patient Disposition: Home (Routine Discharge)
Discharge Diagnosis/Procedures: Abdo pain secondary to gastric ulcer
Condition: Good
Diet: Regular
Activity: As tolerated
Driving Restrictions: As prior to admission
Bathing Restrictions: None
Referrals:
Rodriguez Armenta MD [Family Provider] - in less than 1 week
Angela Zhao DO [Active] - (office will call patient in 1-2 weeks with the biopsy results.)
Prescriptions:
New
pantoprazole [Protonix] 40 mg tablet,delayed release (DR/EC)
40 mg PO BID Qty: 60 0RF
Rx Instructions:
new medication instead of omeprozole
Continued
meclizine 25 MG tablet
25 mg PO Q8HPRN PRN (Reason: nausea or vertigo) Qty: 12 0RF
rosuvastatin 5 mg Tablet
5 mg PO DAILY
Discontinued
omeprazole 40 mg capsule,delayed release(DR/EC)
40 mg PO DAILY Qty: 14 0RF
Discharge Orders:
Discharge Patient (As Directed); Ordered 02/14/24
Ordered By: Tracy Bishop
Discharge Date and Time
Print Language: [place]ICAN CITIZEN
== END 2024-02-14 19:10 | disposition home or self-care (01) ==
LOC: 3 WEST ACU 01:44
PROVIDERS: ADMITTING PHYSICIAN Internal Medicine; ATTENDING PHYSICIAN Internal Medicine; CONSULT PHYSICIAN Internal Medicine; EMERGENCY PHYSICIAN Student in an Organized Health Care Education/Training Program; FAMILY PHYSICIAN Family Medicine
DX: C16.9 Malignant neoplasm of stomach, unspecified (principal); R10.10 Upper abdominal pain, unspecified; K25.9 Gastric ulcer, unspecified as acute or chronic, without hemorrhage or perforation; R11.2 Nausea with vomiting, unspecified; R19.7 Diarrhea, unspecified; I10 Essential (primary) hypertension; E78.00 Pure hypercholesterolemia, unspecified; K76.0 Fatty (change of) liver, not elsewhere classified; K76.89 Other specified diseases of liver; K21.9 Gastro-esophageal reflux disease without esophagitis; K44.9 Diaphragmatic hernia without obstruction or gangrene; E87.1 Hypo-osmolality and hyponatremia; R42 Dizziness and giddiness; K31.89 Other diseases of stomach and duodenum; Z87.11 Personal history of peptic ulcer disease; Z91.040 Latex allergy status; Z80.0 Family history of malignant neoplasm of digestive organs; Z87.19 Personal history of other diseases of the digestive system
CPT/HCPCS: 43239; 88305; 74177; 76700; 80053; 83690; 85025; 85027; 88342; 88360; 99285; G0378; Q9967

== ENCOUNTER → 2024-03-04 07:29 | Outpatient (REF) | payer OTHER, SELFPAY | LOC: MRI 07:29 | PROVIDERS: ATTENDING PHYSICIAN Internal Medicine Hematology & Oncology; FAMILY PHYSICIAN Family Medicine | DX: C16.9 Malignant neoplasm of stomach, unspecified (principal); K27.9 Peptic ulcer, site unspecified, unspecified as acute or chronic, without hemorrhage or perforation | CPT/HCPCS: 74183; A9575 ==

== ENCOUNTER 2024-03-21 04:11 | Inpatient (IN) | payer OTHER, SELFPAY ==
[2024-03-20 23:23] VITALS: BMI 25.7
[2024-03-20 23:37] VITALS: BP 141/78
[2024-03-21] VITALS (11 sets, daily range): BP systolic 115–139; BP diastolic 63–86; BMI 21.9
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
[2024-03-21 00:40] LABS: % Basophils 0.7 % (0-2); % Immature Granulocytes 0.2 % (0-0.5); % Lymphocytes 14.8 % (20.5-51.1); % Monocytes 11.7 % (1.7-9.3); % Neutrophils 71.6 % (42.2-75.2); Absolute Basophils 0.1 10^3/uL (0-0.2); Absolute Eosinophils 0.1 10^3/uL (0-0.7); Absolute Lymphocytes 1.3 10^3/uL (1.2-3.4); Absolute Neutrophils 6.4 10^3/uL (1.4-6.5); Hematocrit 30.7 % (37.0-47.0); Hemoglobin 10.7 g/dL (12.0-16.0); Mean Corp Hgb Conc. 34.9 g/dL (33.0-37.0); Mean Corpuscular Hgb 31.3 pg (27.0-31.0); Mean Corpuscular Volume 89.8 fL (81.0-99.0); Mean Platelet Volume 9.2 fL (7.4-10.4); Nucleated Red Blood Cells % 0 %; Platelet Count 259 10^3/uL (130-400); Red Blood Cell Count 3.42 10^6/uL (4.20-5.40); White Blood Cell Count 8.9 10^3/uL (4.8-10.8)
[2024-03-21 00:42] LABS: Glucose - Point of Care 142 mg/dl (70-99)
[2024-03-21 00:56] LABS: APTT 27.1 Sec (23.4-35.0); PT 15.3 Sec (11.4-14.6)
[2024-03-21 01:03] LABS: ALT (SGPT) 41 U/L (0-35); AST (SGOT) 58 U/L (14-36); Albumin 3.8 g/dl (3.5-5.0); Alkaline Phosphatase 174 U/L (38-126); Blood Urea Nitrogen 26 mg/dl (7-17); Calcium 9.7 mg/dl (8.4-10.2); Carbon Dioxide 28 mmol/L (22-30); Chloride 102 mmol/L (98-107); Estimated Creatinine Clearance 40 ml/min; Glucose 151 mg/dl (70-99); Potassium 4.1 mmol/L (3.5-5.1); Sodium 135 mmol/L (135-145); Total Bilirubin 0.7 mg/dl (0.2-1.3); Total Protein 6.6 g/dl (6.3-8.2); eGFR > 60.00
[2024-03-21 01:37] LABS: Troponin I < 0.012 ng/ml
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
[2024-03-21] MEDS: DECADRON 10 MG IV (03:34)
--- NOTE | 2024-03-21 04:54 | PTCARENOTE ---
Rec'd pt from ED RN. Pt presents detached/dissociated, unwilling to answer majority of admission questions, but does respond to some yes/no questions and responds appropriately to all orientation questions. NIH and neuro check performed, see
worklist. Pt maintains 95% on RA, SR with HR 74, 139/67. Lungs clear, but diminished. Pt oriented to room, call mckeon, etc.
[2024-03-21 05:34] LABS: Hematocrit 31.4 % (37.0-47.0); Mean Corpuscular Hgb 31.2 pg (27.0-31.0); Platelet Count 261 10^3/uL (130-400); Red Blood Cell Count 3.53 10^6/uL (4.20-5.40); Red Cell Dist. Width 11.9 % (11.5-14.5); White Blood Cell Count 10.2 10^3/uL (4.8-10.8)
[2024-03-21 05:59] LABS: Iron 44 ug/dl (37-170)
[2024-03-21 06:01] LABS: Blood Urea Nitrogen 22 mg/dl (7-17); Calcium 9.6 mg/dl (8.4-10.2); Carbon Dioxide 25 mmol/L (22-30); Chloride 102 mmol/L (98-107); Estimated Creatinine Clearance 67 ml/min; Glucose 120 mg/dl (70-99); HDL Cholesterol 57 mg/dl; LDL Cholesterol, Calculated 92 mg/dl; Potassium 4.4 mmol/L (3.5-5.1); Sodium 135 mmol/L (135-145); Total Cholesterol 169 mg/dl (50-199); Triglyceride 100 mg/dl (10-149); Very Low Density Lipoprotein 20 mg/dl (0-30); eGFR > 60.00
[2024-03-21 06:09] LABS: Percent Saturation 13 % (20-50); Total Iron Binding Capacity 335 ug/dl (265-497)
--- NOTE | 2024-03-21 07:45 | W.PN.HOSP.TC ---
Addendum entered and electronically signed by Tyrone Dorsey MD 03/21/24 15:57:
Discussed with family and multidisciplinary team approach with hospice as well. CODE STATUS changed to limited DNR. Awaiting MRI.
Original Note:
Today's Communication/Plan
-
IV steroids. Plan for MRI of the brain. Neurology and neurosurgery eval. Hospice consulted as well.
Assessment / Plan
Assessment / Plan
Physical exam:
General: Acute on chronically ill
HEENT: Normocephalic, Atraumatic and Moist Mucous Membranes
Respiratory: Clear to Auscultation; Negative Wheezes, Rales or Rhonchi
Cardiac: Regular Rhythm and S1/S2
GI: Soft, Nontender and Nondistended
Musculoskeletal: No Clubbing, No Cyanosis and No Edema
Neuro: Awake, Alert and Oriented, left visual field deficit with left homonymous hemianopsia and mild right gaze preference. Strength 5 out of 5 all extremities. No sensory deficits. No ataxia.
Psych: Calm
A/P:
Left Visual Field Deficit
Confusion / Generalized Weakness
- Admitted for further evaluation and treatment.
- CT imaging done in the ED this evening reveals several R sided brain lesions (caudate, frontal and parietal).
- ? CVA versus metastatic disease / edema - suspect the latter.
- Will begin IV steroids now for suspected vasogenic edema contributing to her symptoms.
- Keppra for now for seizure prophylaxis.
- MRI with and without contrast in the AM for further evaluation.
- Neurosurgery and Neurology consulted.
- PT / OT evaluations.
- ASA daily for now pending MRI results.
- Follow for clinical changes - repeat BOWLING BALL PATCHER imaging if any acute changes.
Metastatic Gastric Adenocarcinoma
- PET-CT done 03/13 reveals evidence of metastatic disease in the liver and abdominal lymph nodes.
- Follow-up MRI this AM for evaluation of BOWLING BALL PATCHER - but suspect also metastatic disease of the brain.
- Not on any active therapy and family notes that patient does not wish to pursue any.
- They have discussed Hospice care but no arrangements have been made.
- Discussed code status and they wish for her to remain full code at this time - pending discussions with other family members, etc.
- Son Jean Browning is the primary field contact technician. ([phone])
- Case Management consulted to review Hospice care / options / etc.
Normocytic Anemia
- Hgb stable compared to recent values.
- Decreased from 13 to 10 following development of GI issues / ulcer / etc in February. Hemoglobin 11 this morning
- No significant change since that time.
- Check iron studies.
- Follow H&H for any changes.
DVT Prophylaxis: SCDs
Code Status: Full.
Total time spent on today's encounter was 52 minutes which included time spent in counseling the patient/family regarding diagnosis and treatment plan as listed above, goals of care, and symptom management. Case was discussed with nursing staff,
specialists, and care coordinators/case management. All labs and imaging personally reviewed by me. Remainder the time spent in detailed review of previous records, lab data, imaging, and other medical provider documentation.
Anticipated Discharge: > 48 hours
Subjective/Interval History
-
Date of Service: March 21, 2024
Present has left-side visual deficits. No fever, no seizure-like activity.
Objective Data
-
Labs:
Laboratory Results
03/21/24 03/21/24
00:26 05:23
WBC 8.9 10.2
Hgb 10.7 L 11.0 L
Hct 30.7 L 31.4 L
Plt Count 259 261
PT 15.3 H
INR 1.20
APTT 27.1
Sodium 135 135
Potassium 4.1 4.4
Chloride 102 102
Carbon Dioxide 28 25
BUN 26 H 22 H
Creatinine 0.8 0.6
Glucose 151 H 120 H
Calcium 9.7 9.6
Total Bilirubin 0.7
AST 58 H
ALT 41 H
Alkaline Phosphatase 174 H
Vital Signs:
Vital Signs
Temp Pulse Resp BP Pulse Ox
98.3 F 75 24 133/73 95
03/21/24 07:00 03/21/24 07:15 03/21/24 07:15 03/21/24 07:14 03/21/24 07:15
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
[2024-03-21] MEDS: PROTONIX 40 MG PO ×2 (08:45→20:13)
[2024-03-21] MEDS: KEPPRA 500 MG PO ×2 (08:45→20:13)
[2024-03-21] MEDS: CRESTOR 5 MG PO (08:46)
[2024-03-21] MEDS: LOW STRENGTH ASPIRIN 81 MG PO (08:46)
--- NOTE | 2024-03-21 09:29 | CM ---
Patient with Hx Metastatic Gastric Adenocarcinoma with confusion / vision changes, possible brain metastases. MRI pending. Room air. Receiving IV Decadron.
Spoke with patient's son Darrius;
the patient resides with her son in a house with in a basement in-law unit, with 8 steps to outside, 13 steps to inside.
The patient had been doing well until a few days ago, and had been independent in ADLs and ambulation.
In the past few days, she declined rapidly and had 24 hr care/supervision by the son, daughter in law, nephew.
Son feels there is good family support from the 3 children and 2 grand-children. There is a sister in [place] and brother in [place].
No DME, prior VN or SNF.
PCP - Dr Montilla
Pharmacy - [facility]
CM COnsult: Hospice
Explained hospice philosophy & benefits.
Son says patient/family would like hospice, and he agrees to Hospice nurse contacting him today.
He is at home resting currently as he was here at until after 4am.
Spoke with [facility]; discussed referral. She will contact patient/family today.
Plan follow up after seen by Hospice.
--- NOTE | 2024-03-21 09:40 | HOSPNOTE ---
Addendum entered by Abida Araujo RN 03/21/24 14:57:
Very long family meeting, all questions answered. The plan is for family to await the MRI results and then will make a final decision about hospice care. If hospice is wanted we will arrange equipment family will need to arrange extra caregiving.
The plan is to meet again tomorrow at 10am and will make final decisions. The patient is now a limited DNR, Dr Dorsey aware and will change in computer.
Original Note:
Will meet with family to discuss hospice care. The son is coming into the hospital around 11am. More information to follow.
[2024-03-21] MEDS: PLAVIX 75 MG PO (12:47)
[2024-03-21] MEDS: DECADRON 4 MG IV ×2 (12:48→17:15)
--- NOTE | 2024-03-21 13:23 | EEG.RPT ---
Electroencephalogram Report
Recording
Date of EE03/21/24
Type of EEG: Routine
Length of EEG recordin minutes
Done with Video Recording: Yes
Patient Status: Inpatient
Recording Conditions: Awake, Drowsy and Asleep
Hyperventilation Performed: No
Photic Stimulation Performed: Yes
Report
METHODS
A 21 channel digitized electroencephalogram was performed at [facility]. The 10/20 international system of electrode placement was used. In addition to EEG, the patient was monitored for EKG. The duration of the recording was 63 minutes.
BACKGROUND
During the awake state, she had focal slowing over the R hemisphere to 3-5Hz; L hemisphere had a normal background of 8.5Hz.
SLEEP
Stage II sleep was obtained and consisted of symmetrical sleep spindles and vertex sharp waves.
PHOTIC STIMULATION
Photic stimulation using a step-knight increase in photic frequency varying from 1-31 Hertz resulted in no driving responses but no appearance of abnormal activity.
CLINICAL EVENTS
None
INTERPRETATION AND CLINICAL CORRELATION
This EEG is abnormal due to the presence of right hemispheric focal slowing that was moderate to severe; otherwise the study was normal. This finding can be seen with moderate to severe right hemispheric cerebral dysfunction, nonspecific in
etiology. Possibilities include tumor and stroke. No clear seizures were noted.
--- NOTE | 2024-03-21 13:41 | CON.NS ---
Chief Complaint
-
Multiple brain lesion
History of Present Illness
This is a 83-year-old female recently diagnosed with gastric CA who since she underwent PET/CT was having difficulty with her left visual field. It worsened significantly yesterday with associated left-sided partial neglect. She presented to the
emergency room where CT of the head showed multiple hypodense lesions throughout the brain. MRI is currently pending. She offers no complaints. Her family is at bedside
Review of Systems
-
10 point review of systems completed negative except stated in HPI
Medication and Allergies
Home Medications
Home Medications
�Medication �Instructions �Recorded
meclizine 25 mg tablet 25 mg PO Q8HPRN PRN nausea or 09/29/20
vertigo #12 tabs
rosuvastatin 5 mg tablet 5 mg PO DAILY High Cholesterol 02/13/24
pantoprazole 40 mg tablet,delayed 40 mg PO BID #60 tabs 02/14/24
release (Protonix)
Allergies
Allergies
Allergy/AdvReac Type Severity Reaction Status Date / Time
latex Allergy Rash Verified 03/21/24 00:04
Physical Exam
-
Exam:
Full strength bilateral
Left visual field cut
Pupils equal react
Awake alert and oriented
CT head shows multiple hypodense lesions to the bilateral cerebral hemispheres
Problems
-
Problem Status Onset Code
Cancer of liver C22.9
Acute cerebrovascular accident (CVA) I63.9
Assessment / Plan
-
Brain lesions
1. Check MRI brain with and without contrast
2. Given history of cancer this could represent tumor or the possibility of multifocal stroke
3. Await MRI, notify neurosurgery once completed for review
--- NOTE | 2024-03-21 13:54 | PTCARENOTE ---
Patient is awake, alert and oriented to person, place and time. Continues to have left sided neglect. Speech is slow and clear. Denying pain when asked. EEG completed. MRI shortly. Compliant with plan of care.
--- NOTE | 2024-03-21 16:21 | PTOTSP ---
SPEECH THERAPY SWALLOW AND SPEECH/LANGUAGE/COGNITIVE COMMUNICATION EVALUATION:
Patient exhibits clinical signs of oropharyngeal swallow, likely acutely related to CVA vs. metatsatic disease. No history of dysphagia noted. Patient remains at high risk for aspiration and related complications due to confusion. Recommend IDDSI
Level 5 Minced and Moist diet, thin liquids. Medications whole in puree. Aspiration precautions: Upright positioning, small single sips, 100% supervision and 1:1 assist; Verbal cues to swallow; Ensure patient swallows prior to next bite; Slow rate;
Monitor for signs of aspiration and d/c if any decline in mental or respiratory status. Speech therapy to follow for swallow therapy, assess diet tolerance and modify as appropriate, determine indication for VSE if indicated, and provide continued
diagnostic swallow therapy as appropriate.
Patient exhibits moderately impaired expressive/receptive language and cognitive communication skills characterized by: Significant Left Neglect; Delayed processing speed; Reduced attention; Reduced STM; Perseveration; Reduced
initiation/elaboration; Reduced safety awareness/judgement; Reduced problem solving skills. Recommend ST to follow for speech/language/cognitive communication therapy.
RECOMMEND:
1) IDDSI Level 5 Minced and Moist diet, thin liquids
2) Medications whole in puree
3) Aspiration precautions: Upright positioning, small single sips, 100% supervision and 1:1 assist; Verbal cues to swallow; Ensure patient swallows prior to next bite; Slow rate; Monitor for signs of aspiration and d/c if any decline in mental or
respiratory status
4) ST to follow for speech/swallow therapy
--- NOTE | 2024-03-21 21:36 | PTCARENOTE ---
Received pt at change of shift. NIHSS 2. Neuro checks Q2H as documented. Pt AAOx3 but forgetful at times. Difficulty remembering why she needs to stay in the hospital despite reeducation. VSS at this time. No complaints offered. Resting in bed
with call mckeon in reach.
[2024-03-22] VITALS (13 sets, daily range): BP systolic 105–133; BP diastolic 50–74; PULSE 62–73; O2SAT 94
[2024-03-22] MEDS: DECADRON 4 MG IV ×2 (01:01→05:44)
[2024-03-22 04:05] LABS: Hematocrit 33.2 % (37.0-47.0); Hemoglobin 11.5 g/dL (12.0-16.0); Mean Corp Hgb Conc. 34.6 g/dL (33.0-37.0); Mean Corpuscular Hgb 31.7 pg (27.0-31.0); Mean Corpuscular Volume 91.5 fL (81.0-99.0); Mean Platelet Volume 9.3 fL (7.4-10.4); Platelet Count 264 10^3/uL (130-400); Red Blood Cell Count 3.63 10^6/uL (4.20-5.40); Red Cell Dist. Width 11.9 % (11.5-14.5); White Blood Cell Count 13.7 10^3/uL (4.8-10.8)
[2024-03-22 04:36] LABS: Blood Urea Nitrogen 25 mg/dl (7-17); Calcium 9.8 mg/dl (8.4-10.2); Carbon Dioxide 24 mmol/L (22-30); Chloride 105 mmol/L (98-107); Estimated Creatinine Clearance 50 ml/min; Glucose 149 mg/dl (70-99); Potassium 4.5 mmol/L (3.5-5.1); Sodium 138 mmol/L (135-145); eGFR > 60.00
[2024-03-22] MEDS: KEPPRA 500 MG PO (08:16)
[2024-03-22] MEDS: PROTONIX 40 MG PO ×2 (08:16→21:02)
[2024-03-22] MEDS: PLAVIX 75 MG PO (08:16)
[2024-03-22] MEDS: LOW STRENGTH ASPIRIN 81 MG PO (08:16)
[2024-03-22] MEDS: CRESTOR 5 MG PO (08:16)
--- NOTE | 2024-03-22 08:37 | W.PN.HOSP.TC ---
Today's Communication/Plan
-
Antiplatelet and statins. Stroke workup in progress.
Assessment / Plan
Assessment / Plan
Physical exam:
General: Acute on chronically ill
HEENT: Normocephalic, Atraumatic and Moist Mucous Membranes
Respiratory: Clear to Auscultation; Negative Wheezes, Rales or Rhonchi
Cardiac: Regular Rhythm and S1/S2
GI: Soft, Nontender and Nondistended
Musculoskeletal: No Clubbing, No Cyanosis and No Edema
Neuro: Awake, Alert and Oriented, left visual field deficit with left homonymous hemianopsia and mild right gaze preference. Strength 5 out of 5 all extremities. No sensory deficits. No ataxia.
Psych: Calm
A/P:
Acute stroke:
MRI consistent with extensive cerebral infarcts in the right hemisphere most pronounced on the right frontal lobe and parietal lobe
No evidence of metastasis
NIH score
Dual antiplatelet therapy aspirin Plavix
Statins, rosuvastatin (LDL 92)
Neurology and neurosurgery eval appreciated
Plan for MRA head and neck
Plan for echo
Check hemoglobin A1c
PT OT eval
Speech [id number]
Discontinue steroids and antiseizure medicines
Discussed and updated family at bedside today
Leukocytosis:
Reactive due to steroid
Metastatic Gastric Adenocarcinoma
- PET-CT done 03/13 reveals evidence of metastatic disease in the liver and abdominal lymph nodes.
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
- Not on any active therapy and family notes that patient does not wish to pursue any.
- They have discussed Hospice care but no arrangements have been made.
- Discussed code status and they wish to change to a limited DNR (okay with compressions but no intubation)
- Son Jean Browning is the primary counter sales person. ([phone])
- Case Management consulted to review Hospice care / options / etc.
Normocytic Anemia
- Hgb stable compared to recent values.
- Decreased from 13 to 10 following development of GI issues / ulcer / etc in February. Hemoglobin 11.5 today
- No significant change since that time.
- Check iron studies.
- Follow H&H for any changes.
DVT Prophylaxis: SCDs
Code Status: Full.
Total time spent on today's encounter was 52 minutes which included time spent in counseling the patient/family regarding diagnosis and treatment plan as listed above, goals of care, and symptom management. Case was discussed with nursing staff,
specialists, and care coordinators/case management. All labs and imaging personally reviewed by me. Remainder the time spent in detailed review of previous records, lab data, imaging, and other medical provider documentation.
Anticipated Discharge: 24 - 48 hours
Subjective/Interval History
-
Date of Service: March 22, 2024
Patient more alert today, still visual deficit but slightly improved. No chest pain or shortness of breath.
Objective Data
-
Labs:
Laboratory Results
03/22/24
03:49
WBC 13.7 H
Hgb 11.5 L
Hct 33.2 L
Plt Count 264
Sodium 138
Potassium 4.5
Chloride 105
Carbon Dioxide 24
BUN 25 H
Creatinine 0.8
Glucose 149 H
Calcium 9.8
Vital Signs:
Vital Signs
Temp Pulse Resp BP Pulse Ox
97.7 F 60 18 119/68 94
03/22/24 07:00 03/22/24 06:00 03/22/24 06:00 03/22/24 06:00 03/22/24 07:38
I&O
03/21/24 03/22/24 03/23/24
06:59 06:59 06:59
Intake Total 600 / 600
Output Total 740 / 740
Balance -140 / -140
--- NOTE | 2024-03-22 08:55 | PTCARENOTE ---
pt awakens easily. see [facility] check/NIH. pt is able to see fingers wiggling and number of fingers with left eye but when reading/looking at pictures only reads right side of paper. pt recognizes that she isnt able to process properly .
--- NOTE | 2024-03-22 11:25 | W.PN.NEURO.1 ---
Addendum entered and electronically signed by Manuela Pierre DO 03/22/24 21:15:
MRAs were cancelled.
Echo showed no CSE.
Original Note:
Today's Communication / Plan
-
mras
echo
Neuro Assessment/Plan
Assessment
MAX MCGEE is a 83 year old F who has presented to the hospital with confusion and L homonymous hemianopsia and imaging c/w stroke, likely due to hypercoagulable state with cancer plus vascular risk factors of age and hyperlipidemia.
EEG showed:
This EEG is abnormal due to the presence of right hemispheric focal slowing that was moderate to severe; otherwise the study was normal. This finding can be seen with moderate to severe right hemispheric cerebral dysfunction, nonspecific in
etiology. Possibilities include tumor and stroke. No clear seizures were noted.
MRI brain showed:
Extensive cerebral infarcts involving the right hemisphere, most pronounced in the right frontal lobe and parietal lobe, as described. Multiple tiny infarcts throughout the right temporal lobe and inferior right frontal lobe. Small acute infarct
involving the head of the right caudate nucleus. No associated significant mass effect or midline shift. No abnormal enhancement or evidence to suggest intracranial metastatic disease.
Plan
Recommendations:
-MRA head/neck
-BP goal is normotension
- Check hemoglobin A1C. Goal is normoglycemia.
- Check an echocardiogram.
-PT/OT/ST evaluations
- DVT prophylaxis
-continue neurochecks
-d/c Keppra and Decadron
-continue NIHSS, seizure precautions, neurochecks
-continue ASA 81mg daily added here, increased Crestor to 10mg qhs ;continue Plavix 75mg daily x 21 days total. LDL is 92; goal after stroke is <70.
-PT/OT/speech therapy evaluations
Subjective/Objective
Subjective Data
Date of Service: March 22, 2024
symptoms unchanged, still with visual field cut
Objective Data
Vital Signs
Temp Pulse Resp BP Pulse Ox
97.7 F 60 18 119/68 94
03/22/24 07:00 03/22/24 06:00 03/22/24 06:00 03/22/24 06:00 03/22/24 07:38
Lab Results
03/22/24 03:49
03/22/24 03:49
PT 15.3 Sec (11.4-14.6) H 03/21/24 00:26
INR 1.20 03/21/24 00:26
APTT 27.1 Sec (23.4-35.0) 03/21/24 00:26
Sodium 138 mmol/L (135-145) 03/22/24 03:49
Potassium 4.5 mmol/L (3.5-5.1) 03/22/24 03:49
BUN 25 mg/dl (7-17) H 03/22/24 03:49
Glucose 149 mg/dl (70-99) H 03/22/24 03:49
Calcium 9.8 mg/dl (8.4-10.2) 03/22/24 03:49
LDL Cholesterol, Calc 92 mg/dl 03/21/24 05:23
Patient Allergies
latex Allergy (Verified 03/21/24 00:04)
Rash
Physical Exam
-
The patient is awake, alert and oriented x 3. Flat affect, mildly diminished attn span. She is able to follow commands. No clear dysarthria; had trouble reading left side of each sentence/phrase but when she turned her head to improve her visual
field she was able to read appropriately/identify objects/read phrases. On cranial nerve assessment, pupils are 3 mm bilateral, round and reactive to light and accommodation.+L homonymous hemianopsia; gaze preference improved; Extraocular movements
are intact. Facial sensations are intact and bilaterally symmetrical, there is no facial asymmetry. Hearing is intact bilaterally to normal conversation volume. Tongue palate and uvula are midline. Sternocleidomastoid strengths are full
bilaterally. Motor strengths are 5/5 bilateral upper and lower extremities on medical research [place] scale. There is no drift or involuntary movement noted. Deep tendon reflexes are 1+ bilateral upper and lower extremities and Babinski is absent
bilaterally. Sensations of touch, temperature are intact and bilaterally symmetrical. There was no extinction noted on double simultaneous stimulation. Coordination is intact by finger to nose bilaterally.
NIH Stroke Scale
NIH Stroke Score
Date of Subsequent NIH Scale: 03/22/24
Time of Subsequent NIH Scale: 10:30
Level of Consciousness: 0 - Alert
LOC Questions: 0-Answers both correctly
LOC Commands: 0-Performs both correctly
Best Horizontal Gaze: 0-Normal
Visual Graves: 2=Full hemianopia
Facial Palsy: 0=Normal, symmetrical
Motor - Right Arm: 0=No drift 10 seconds
Motor - Left Arm: 0=No drift 10 seconds
Motor - Right Le-No drift 5 seconds
Motor - Left Le-No drift 5 seconds
Limb Ataxia: 0-Absent
Sensation: 0-Normal
Best Language: 0-No aphasia
Dysarthria: 0-Normal
Extinction and Inattention: 0-No abnormality
Total Score:: 2
--- NOTE | 2024-03-22 12:36 | HOSPNOTE ---
Long family meeting, the plan is for the patient to return home on hospice services tomorrow 03/23. Equipment was ordered and family in agreement with hospice and the philosophy. The family will try to begin arranging care givers. The family will
pickling operator patient around 12 noon tomorrow. Once patient arrives home we will sign onto hospice services. Attending and case management aware of plan.
--- NOTE | 2024-03-22 12:59 | PTOTSP ---
SPEECH THERAPY SWALLOW FOLLOW UP NOTE:
Patient continues to exhibit clinical signs of oropharyngeal dysphagia, likely [id number] related to acute CVAs in patient with gastric adenocarcinoma. Patient remains at risk for aspiration and related complications given confusion, Left
neglect, and reduced awareness. Recommend continue current diet of IDDSI Level 6, Soft and Bite Size diet (upgraded from evaluation recommendation of IDDSI Level 5 Minced and Moist), thin liquids. Medications crushed in puree. Aspiration precautions
including: Upright positioning; 100% supervision and assistance with meals; Small sips/bites; Slow rate of intake; Monitor for signs of aspiration; D/c oral diet if any decline in mental or respiratory status. Speech therapy to continue to follow
for speech/swallow therapy.
RECOMMEND:
1) IDDSI Level 6 Soft and Bite Size diet, thin liquids
2) Medications crushed in puree
3) Aspiration precautions including: Upright positioning; 100% supervision and assistance with meals; Small sips/bites; Slow rate of intake; Monitor for signs of aspiration; D/c oral diet if any decline in mental or respiratory status
4) ST to follow for speech/swallow
--- NOTE | 2024-03-22 14:37 | W.PN.UPDATE ---
Update Note
Progress Note Update
MRI of the brain was reviewed, which demonstrated ischemic strokes. No obvious evidence of metastasis.
Will defer to neurology/medicine for ongoing workup for stroke.
No further neurosurgical recommendations.
--- NOTE | 2024-03-22 14:43 | CM ---
Patient with Hx Metastatic Gastric Adenocarcinoma with confusion / vision changes, possible brain metastases. Room air.
Spoke with [facility]; patient and family agreed to d/c tomorrow around noon, with Hospice at home. DME will be ordered. Family will transport by car. Per hospice notes- family will be arranging caregivers.
Met with patient, son Darrius and daughter in law; all agree to d/c home tomorrow with Hospice. IMM completed. Offered athletic director and family declined.
Plan home tomorrow with Hospice, with family by car.
--- NOTE | 2024-03-22 16:27 | PTCARENOTE ---
On 01/21/2024 patients ring with alabaster appearance was given to grandson prior to MRI. Discussed with family today, no issues.
--- NOTE | 2024-03-22 17:34 | PTCARENOTE ---
pt downgraded to med surg level of care. pt transferred to [address] [place] [address]. report given to Tarun. pt sent via stretcher with belongings. daughter in law at bedside.
--- NOTE | 2024-03-22 17:55 | PTCARENOTE ---
Patient transferred from IMU. VSS. Patient resting comfortably in bed. Call mckeon within reach. Family at bedside.
[2024-03-23 07:25] VITALS: BP 152/77
[2024-03-23] MEDS: PLAVIX 75 MG PO (08:27)
[2024-03-23] MEDS: LOW STRENGTH ASPIRIN 81 MG PO (08:27)
[2024-03-23] MEDS: PROTONIX 40 MG PO (08:27)
[2024-03-23] MEDS: CRESTOR 10 MG PO (08:27)
--- NOTE | 2024-03-23 09:42 | W.PN.HOSP.TC ---
Addendum entered and electronically signed by Tyrone Dorsey MD 03/26/24 11:01:
Vasogenic edema was present
Original Note:
Today's Communication/Plan
-
Discharge planning today to home hospice
Assessment / Plan
Assessment / Plan
Physical exam:
General: Acute on chronically ill
HEENT: Normocephalic, Atraumatic and Moist Mucous Membranes
Respiratory: Clear to Auscultation; Negative Wheezes, Rales or Rhonchi
Cardiac: Regular Rhythm and S1/S2
GI: Soft, Nontender and Nondistended
Musculoskeletal: No Clubbing, No Cyanosis and No Edema
Neuro: Awake, Alert and Oriented, left visual field deficit with left homonymous hemianopsia and mild right gaze preference. Strength 5 out of 5 all extremities. No sensory deficits. No ataxia.
Psych: Calm
A/P:
Comfort care:
Patient decided on hospice care
She was to continue medications for stroke. Advised that if side effects arise she can always stop down the road or on further discussion with hospital staff.
Discussed with family at bedside
I let neurology know about current status
Acute stroke:
MRI consistent with extensive cerebral infarcts in the right hemisphere most pronounced on the right frontal lobe and parietal lobe
No evidence of metastasis
NIH score
Dual antiplatelet therapy aspirin Plavix
Statins, rosuvastatin (LDL 92)
Neurology and neurosurgery eval appreciated
Plan for MRA head and neck
Plan for echo
Check hemoglobin A1c
PT OT eval
Speech [id number]
Discontinue steroids and antiseizure medicines
Discussed and updated family at bedside today
Leukocytosis:
Reactive due to steroid
Metastatic Gastric Adenocarcinoma
- PET-CT done 03/13 reveals evidence of metastatic disease in the liver and abdominal lymph nodes.
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
- Not on any active therapy and family notes that patient does not wish to pursue any.
- They have discussed Hospice care but no arrangements have been made.
- Discussed code status and they wish to change to a limited DNR (okay with compressions but no intubation)
- Son Jean Browning is the primary contact lens edge buffer. ([phone])
- Case Management consulted to review Hospice care / options / etc.
Normocytic Anemia
- Hgb stable compared to recent values.
- Decreased from 13 to 10 following development of GI issues / ulcer / etc in February. Hemoglobin 11.5 today
- No significant change since that time.
- Check iron studies.
- Follow H&H for any changes.
DVT Prophylaxis: SCDs
Code Status: Changed to limited DNR
Anticipated Discharge: Today
Subjective/Interval History
-
Date of Service: March 23, 2024
No new complaints. Visual deficit improving.
Objective Data
-
Vital Signs:
Vital Signs
Temp Pulse Resp BP Pulse Ox
97.8 F 66 14 152/77 97
03/23/24 07:25 03/23/24 07:25 03/23/24 07:25 03/23/24 07:25 03/23/24 07:25
I&O
03/22/24 03/23/24 03/24/24
06:59 06:59 06:59
Intake Total 600 / 600 1040 / 1040
Output Total 740 / 740
Balance -140 / -140 1040 / 1040
--- NOTE | 2024-03-23 11:46 | CM ---
CM confirmed with hospice executive director project construction assistant manager that pt is good to dc home. Equipment delivered yesterday. Family to transport. RN will meet pt/family at the home.
--- NOTE | 2024-03-23 12:08 | W.DCSUMMARY ---
Discharge Summary
Discharge Data
Date of Admission: 03/21/24
Date of Discharge: 03/23/24
-
Pending Results: No
Hospital Course
Patient 83 years old recently diagnosed with gastric adenocarcinoma, dyslipidemia presented to the with vision changes and found to have acute stroke. Neurology and neurosurgery consulted. Initially concerns for metastatic disease and she was
started on steroids and antiseizure medications but subsequently discontinued. Patient had MRI of the brain that shows evidence of extensive stroke responsible for her symptoms. She was started on antiplatelet and statins. Patient also was seen
by hospice since she did not want to pursue any further management and treatment for her underlying cancer. She agreed to go home hospice and she did not want to pursue further testing in terms of a stroke but would like to continue with
medications as tolerated. Patient is being discharged to home hospice today.
Discharge duration: 34-minutes
Discharge Plan
-
Patient Disposition: Home with Hospice
Discharge Diagnosis/Procedures: Stroke. Gastric cancer
Condition: Fair
Diet: Low Cholesterol
Referrals:
Primary care, provider [Other] (Less than 1 week)
Prescriptions:
New
aspirin 81 mg Tablet,Chewable
81 mg PO DAILY Qty: 30 0RF
clopidogrel 75 mg Tablet
75 mg PO DAILY 21 Days Qty: 21 0RF
rosuvastatin 10 mg Tablet
10 mg PO DAILY 30 Days Qty: 30 0RF
Continued
meclizine 25 MG tablet
25 mg PO Q8HPRN PRN (Reason: nausea or vertigo) Qty: 12 0RF
pantoprazole [Protonix] 40 mg tablet,delayed release (DR/EC)
40 mg PO BID Qty: 60 0RF
Rx Instructions:
new medication instead of omeprozole
Discontinued
rosuvastatin 5 mg Tablet
5 mg PO DAILY
Discharge Orders:
Discharge Patient (As Directed); Ordered 03/23/24
Ordered By: Tyrone Dorsey
Discharge Date and Time
Discharge Date/Time: 03/23/24 12:43
Print Language: KOREAN
--- NOTE | 2024-03-23 12:37 | PTCARENOTE ---
Patient discharged home on home hospice. This RN removed patient's IV and reviewed discharge instructions/medications with patient's family members at bedside, family verbalized understanding. Patient dressed and belongings gathered in room with
assistance of family members. Vitals taken. Patient taken down to family member's car at main lobby via staff escort and wheelchair.
[2024-03-23 12:42] VITALS: BP 113/66
--- NOTE | 2024-03-26 09:50 | PN.CDI ---
CDI
- -
CDI:
Physician Documentation Request
Admit Date: 03/21/24 04:11
Dear Doctor Dorsey,
Please review the following and provide your response in the progress notes.
Clinical Indicators:
The diagnosis of vasogenic edema was documented on 03/21 but is not consistently noted in subsequent documentation.
Progress note states 'Will begin IV steroids now for suspected vasogenic edema contributing to her symptoms'
Please clarify the following:
____ - Vasogenic edema was present
____ - Vasogenic edema was ruled out
____ - Vasogenic edema is still a likely, suspected, probable diagnosis
____ - Other
Use of terms such as suspected, likely, concern for, or probable (associated with a specific diagnosis that is being evaluated, monitored, or treated as if it exists) are acceptable and can be coded in the inpatient setting, when documented at the
time of discharge.
Thank you,
Neha Bell RN, BSN
CDI Specialist
tiger text
Please use your independent medical judgment in providing your response.
== END 2024-03-23 12:43 | disposition hospice, home (50) | DRG 64 ==
LOC: 2 NORTH 04:11
PROVIDERS: ADMITTING PHYSICIAN Hospitalist; ATTENDING PHYSICIAN Hospitalist; EMERGENCY PHYSICIAN Emergency Medicine; OTHER PHYSICIAN Neurological Surgery; OTHER PHYSICIAN Psychiatry & Neurology Neurology
DX: I63.9 Cerebral infarction, unspecified (principal); G93.6 Cerebral edema; C78.7 Secondary malignant neoplasm of liver and intrahepatic bile duct; C16.9 Malignant neoplasm of stomach, unspecified; C77.2 Secondary and unspecified malignant neoplasm of intra-abdominal lymph nodes; E78.5 Hyperlipidemia, unspecified; D72.829 Elevated white blood cell count, unspecified; T38.0X5A Adverse effect of glucocorticoids and synthetic analogues, initial encounter; Y92.239 Unspecified place in hospital as the place of occurrence of the external cause; I10 Essential (primary) hypertension; G93.9 Disorder of brain, unspecified; D64.9 Anemia, unspecified; H53.462 Homonymous bilateral field defects, left side; Z51.5 Encounter for palliative care; Z66 Do not resuscitate; Z87.11 Personal history of peptic ulcer disease; Z91.040 Latex allergy status
CPT/HCPCS: 70450; 70553; 80048; 80053; 80061; 82962; 83036; 83540; 83550; 84484; 85025; 85027; 85610; 85730; 92523; 92526; 92610; 93005; 93306; 94760; 95813; 97116; 97163; 97167; 97530; 99285; A9575